=== PATIENT | male | born 1970 | race Hispanic/Latino ===

== ENCOUNTER 2024-10-17 14:45 | Emergency (ER) | payer BC, OTHER ==
[~2024-10-17] VITALS: Ht 177.8 cm; Wt 93.0 kg
[2024-10-17 16:22] LABS: SARS-CoV-2, RNA, NAAT NEGATIVE SARS CoV-2 (NEGATIVE)
[2024-10-17 16:27] LABS: INFLUENZA TYPE A Negative For Type A (NEGATIVE); INFLUENZA TYPE B Negative For Type B (NEGATIVE)
[2024-10-17 16:48] VITALS: TEMP 102
[2024-10-17] MEDS: acetaMINOPHEN 325 MG TAB PO STA (16:48)
[2024-10-17] MEDS ORDERED: AMOX1TAB16 PO (16:56)
--- NOTE | 2024-10-17 16:57 | ERN ---
ED Note History of Present Illness Stated Complaint: COUGH Chief Complaint: Fever Time Seen by MD: 15:15 Time Seen by Midlevel: 15:20 Dictation: 53-YEAR-OLD MALE WITH NO PAST MEDICAL HISTORY COMING IN COMPLAINING OF HEADACHE, RUNNY NOSE, CONGESTION FOR ONE WEEK. PATIENT STATES HIS WAS SICK ONE WEEK AGO HOWEVER SHE HAS GOTTEN BETTER. DENIES ANY CHEST PAIN, CHEST DISCOMFORT, COUGH, NAUSEA, VOMITING, DIARRHEA, OR SHORTNESS A BREATH. Allergies: Coded Allergies: No Known Allergies (Unverified Allergy, Unknown, 10/17/24) Past Medical History Past Medical History: No Pertinent History Surgical History: Other Review of System Dictation CONSTITUTIONAL: POSITIVE FOR FEVER,CHILLS, NO WEIGHT LOSS EYES: NEGATIVE FOR INJURY, PAIN,REDNESS, AND DISCHARGE ENT: COMPLAINING OF CONGESTION AND RHINORRHEA CARDIOVASCULAR: NEGATIVE FOR CHEST PAIN, PALPITATIONS, AND EDEMA RESPIRATORY: NEGATIVE FOR SHORTNESS OF BREATH, COUGH, AND WHEEZING, ABDOMEN/GI: NEGATIVE FOR ABDOMINAL PAIN, NAUSEA, VOMITING, DIARRHEA, AND CONSTIPATION BACK: NEGATIVE FOR INJURY AND PAIN : NEGATIVE FOR INJURY, BLEEDING AND DISCHARGE MS/EXTREMITY: NEGATIVE FOR INJURY AND DEFORMITY SKIN: NEGATIVE FOR RASH, AND DISCOLORATION NEURO: NEGATIVE FOR HEADACHE, WEAKNESS, NUMBNESS, TINGLING, AND SEIZURE PSYCH: NEGATIVE FOR SUICIDE IDEATION, HOMICIDAL IDEATION, AND HALLUCINATIONS Review of Systems: was completed Initial Vital Sign VS Vital Signs Date Time Temp Pulse Resp B/P (MAP) Pulse Ox O2 Delivery O2 Flow Rate FiO2 10/17/24 15:40 102.0 99 20 137/88 99 Room Air Physical Exam Dictation GENERAL: AWAKE, ALERT, NAD HEAD/FACE: NORMOCEPHALIC, ATRAUMATIC EYES: PERRL, EOMI, VISION AT BASELINE ENT: ORAL CAVITY CLEAR, BILATERAL TMS ERYTHEMIC, MORE SO ON THE RIGHT SIDE NO DRAINAGE, NECK: TRACHEA MIDLINE, SUPPLE, NO NUCHAL RIGIDITY CARDIOVASCULAR: RRR, NORMAL S1/S2, NO MRGS, NO JVD RESPIRATORY: CTAB, NO RESPIRATORY DISTRESS, NO RALES OR WHEEZES ABDOMEN: SOFT, NON-TENDER, NON-DISTENDED, NORMAL BOWEL SOUNDS, NO GUARDING OR REBOUND. SKIN: WARM, DRY, NORMAL TURGOR, NO RASH MS/EXTREMITY: PULSES EQUAL, NO CYANOSIS, NEUROVASCULAR INTACT, FROM NEURO: COAX4, GCS 15, STRENGTH 5/5, CN 2-12 INTACT, NORMAL CEREBELLAR EXAM, NORMAL GAIT, PSYCH: NORMAL BEHAVIOR, MOOD, AND AFFECT NORMAL Results (Laboratory/Radiology) Laboratory/Radiology Laboratory Tests Test 10/17/24 15:51 Influenza Type A Antigen Negative For Type A Influenza Type B Antigen Negative For Type B SARS-CoV-2, RNA, NAAT NEGATIVE SARS CoV-2 Labs Reviewed?: Yes ED Course ED Course Orders Procedure Category Date Status Time Covid Rna Naat LAB 10/17/24 Complete 15:42 Acetaminophen 325 Tab PHA 10/17/24 Complete (Tylenol 325mg Tab 15:42 Influenza Type A & B, LAB 10/17/24 Complete Rapid 15:42 Current Medications Medications (Trade) Dose Ordered Sig/Jose Enrique Route PRN Reason Start Time Stop Time Status Last Admin Dose Admin Acetaminophen (TYLenol 325MG TAB) 1,000 mg ONCE STAT PO 10/17/24 15:42 10/17/24 15:43 DC 10/17/24 16:48 Vital Signs Date Time Temp Pulse Resp B/P (MAP) Pulse Ox O2 Delivery O2 Flow Rate FiO2 10/17/24 16:48 102.0 10/17/24 15:40 102.0 99 20 137/88 99 Room Air Medical Decision Making MDM MDM: 53-YEAR-OLD MALE WITH NO PAST MEDICAL HISTORY COMING IN COMPLAINING OF HEADACHE, RUNNY NOSE, CONGESTION FOR ONE WEEK. PATIENT STATES HIS WAS SICK ONE WEEK AGO HOWEVER SHE HAS GOTTEN BETTER. DENIES ANY CHEST PAIN, CHEST DISCO MFORT, COUGH, NAUSEA, VOMITING, DIARRHEA, OR SHORTNESS A BREATH. SARS SWABS NEGATIVE, INFLUENZA SWAB NEGATIVE. DISCUSSED WITH THE PATIENT'S FINDINGS. EDUCATED PATIENT HAS NOT KNOW IF HE HAS VIRAL SYNDROME ALONG WITH OTITIS MEDIA BILATERALLY, WE WILL PRESCRIBE PATIENT MEDICATION FOR HIS EAR INFECTION AND EDUCATED PATIENT ON SYMPTOMATIC CONTROL [id number]. EDUCATED TO FOLLOW UP WITH PCP IN 1-2 DAYS AND TO RETURN TO THE ER SYMPTOMS WORSEN. PATIENT VERBALIZED UNDERSTANDING, ANSWERED ALL QUESTIONS. DIFFERENTIAL DIAGNOSIS: INFLUENZA, COVID, VIRAL SYNDROME RATIONALE: TESTS CONSIDERED AND ORDERED SECONDARY TO SHARED DECISION MAKING INCLUDE: PREVIOUS OUTSIDE RECORDS REVIEWED: OLD ER VISITS. RISK OF COMPLICATION AND/OR MORBIDITY OR MORTALITY OF PATIENT MANAGEMENT: NONE MEDICATIONS-PER MEDICATION RECONCILIATION NEED FOR HOSPITALIZATION: PATIENT DOES NOT MEET CRITERIA FOR HOSPITALIZATION. NEED FOR EMERGENCY MAJOR/MINOR SURGERY: NO THERE ARE NO SOCIAL CONCERNS WITH THIS PATIENT. PRESCRIPTION DRUG MANAGEMENT PRESCRIPTIONS WILL INCLUDE SYMPTOMATIC CARE PATIENT'S PRIOR EXTERNAL MEDICAL RECORDS FROM OTHER ER VISITS WERE REVIEWED BY ME INDICATED. PRIOR TESTING AND RESULTS FROM PREVIOUS VISITS WERE REVIEWED. PRIOR TESTS WERE TAKEN INTO ACCOUNT WITH MEDICAL DECISION MAKING AND RESOURCE UTILIZATION, INDEPENDENT HISTORIAN/HISTORIANS WERE USED TO OBTAIN COMPLETE MEDICAL HISTORY. I INDEPENDENTLY INTERPRETED THE TEST THAT WERE PERFORMED, RESULTS WERE REVIEWED BY ME AND CONSIDERED FINDINGS ON RADIOLOGY IF ORDERED. MEDICAL MANAGEMENT AND EXAMINATION INTERPRETATION DISCUSSIONS WERE HAD BY ME WITH OTHER QUALIFIED HEALTHCARE PROFESSIONALS INDICATED FOR THE PATIENT'S CARE. DX & DISP Disposition: Discharge Departure Impression: Primary Impression: Viral respiratory infection Additional Impression: Acute otitis media Condition: Stable Scripts Amoxicillin/Potassium Clav (Amox Tr-K Clv 875-125 mg Tab) 875 Mg-125 Mg Tablet 1 EACH PO BID for 5 Days, #10 TAB 0 Refills Prov: LETY CARRASCO NP 10/17/24 Additional Instructions: FOR YOUR CONGESTION TAKE [id number] MEDICATIONS LIKE SUDAFED OR MUCINEX. TREAT FEVER WITH TYLENOL OR MOTRIN. TAKE THE ANTIBIOTIC. EAR INFECTION PRESCRIBED. FOLLOW UP WITH YOUR PCP IN 1-2 DAYS AND RETURN TO THE ER IF SYMPTOMS WORSEN. Referrals: SELF,REFERRAL (PCP) Time of Disposition: 16:56 I have reviewed the case, and I agree with, Diagnosis and Plan LETY CARRASCO NP Oct 17, 2024 16:57
[2024-10-17 17:17] VITALS: BP 131/85; PULSE 90; RESP 20; TEMP 99.9; O2SAT 99
== END 2024-10-17 17:24 | disposition home or self-care (01) ==
LOC: EDH 14:45
DX: J22 Unspecified acute lower respiratory infection (principal); H66.90 Otitis media, unspecified, unspecified ear; B97.89 Other viral agents as the cause of diseases classified elsewhere; Z20.822 Contact with and (suspected) exposure to COVID-19
CPT/HCPCS: 87635; 87804; 99283